=== PATIENT | female | born 1945 | race Caucasian/White ===

== ENCOUNTER 2023-07-14 10:51 | Day surgery (SDC) | payer MEDICARE, OTHER, SELFPAY ==
--- NOTE | 2023-07-14 | LES_PTH ---
PATIENT: JOON RUSSELL LOC: [facility] [place] U#:[id number] AGE/SX: 77/F ROOM: RE07/14/[address]: Dr. Libia Go MD : [id number] BED: DIS: 07/14/2023 SPEC #: [id number] RECD: 07/14/23 13:05 STATUS: MICHAEL TRICIA #: [id number] YAZ: 07/14/23 00:[address]: Libia Go DEPT: SURGICAL PATHOLOGY RECD BY: Janiya Peraza Tissues: A - Skin of face, NOS B - Skin of face, NOS Procedures: Frozen Section (charge) Surgery Specimen Level IV HEADER OPERATION: Excision squamous cell carcinoma left cheek wit frozen section PRE-OP DIAGNOSIS: Squamous cell skin cancer face TISSUE SUBMITTED: A - Squamous cell carcinoma left cheek, frozen section, B - Left cheek lesion FROZEN SECTION DIAGNOSIS A. Left cheek lesion, excisional biopsy: Margins are free of tumor. SJ:vinh 07/14/2023 Case has been reviewed in consultation with Dr. Melissa who concurs with the above diagnosis. IDC:AM MICROSCOPIC DIAGNOSIS A. Left cheek lesion, excisional biopsy: Basal cell carcinoma, completely excised. Solar elastosis. B. Left cheek lesion, biopsy: Intradermal nevus. Solar elastosis. 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 Case has been reviewed in consultation with Dr. Melissa who concurs with the above diagnosis. IDC:AM MICROSCOPIC DESCRIPTION Slides are reviewed. GROSS DESCRIPTION A - Received fresh for frozen section diagnosis labeled with the patient's name is a specimen designated left cheek lesion. The specimen consists of an ovoid piece of العلي-white skin oriented on gauze measuring 1.1 x 1.0 x 0.2 cm. The specimen is inked as follows: 12 to 3 o'clock - black, 3 to 6 o'clock - blue, 6 to 9 o'clock - green and 9 to 12 o'clock - yellow. The specimen is serially sectioned and submitted entirely for frozen section diagnosis in one cassette. / WINIFRED:vinh 07/14/2023 B - Received in fixative is one container labeled with the patient's name and designated left cheek lesion. The specimen consists of a piece of العلي-white skin measuring 0.5 x 0.2 x 0.1 cm. The specimen is inked and submitted entirely in one cassette. / WINIFRED:vinh 07/18/2023 TC:0 CPT: 90962 x2, 59808
[2023-07-14 11:30] VITALS: BP 148/82; PULSE 82; RESP 17; TEMP 36.2; O2SAT 96; BMI 31.4
--- NOTE | 2023-07-14 12:16 | PCM.HP.BLA ---
History and Physical Date of Admission: 07/14/23 The patient is examined and there are no changes from the exam of 07/04/2023. She presents for excision of a skin cancer of her left cheek with frozen section along with a second lesion in the left cheek area. Assessment & Plan Assessment/Plan (1) Squamous cell skin cancer, face: (2) Neoplasm of uncertain behavior of skin: PLAN: Plan Basosquamous carcinoma of the left cheek and lesion of left cheek For excision with frozen section of the biopsy-proven skin cancer and excision of a secondary lesion.
[2023-07-14 12:36] VITALS: BP 131/78; BP 132/67; O2SAT 94; O2SAT 95; O2SAT 96
[2023-07-14] MEDS: Lidocaine 1% /Epi 1:100 9 ML, Sodium Bicarbonate 1 MEQ OPERA.SITE (13:06)
--- NOTE | 2023-07-14 13:26 | DCINST_ITS ---
Discharge Instructions Dressing / Incision Additional Dressing/Incision Instructions:: Keep your head elevated (recliner position) for the next 2-3 nights to reduce swelling and bruising. Take the oral antibiotic (Keflex) 2 x a day until finished. Keep the steri-strips dry and intact until seen in the office. If they should fall off, clean the area with peroxide 1 x a day. Follow Up Care Please Follow Up With: Libia Go MD Test Results: Test results from this visit will be discussed in further detail at your follow- up appointment, if applicable. Discharge Plan Admission Attending Provider: Libia Go Primary Care Provider: BRICE CABRERA Discharge Orders/Prescriptions Prescriptions: New cephalexin 500 mg capsule 500 mg PO BID Qty: 10 0RF No Action magnesium 250 mg tablet 250 mg PO DAILY calcium citrate-vitamin D3 [Citracal + D Maximum] 315 mg-6.25 mcg (250 unit) tablet 1 tab PO DAILY losartan 50 mg tablet 50 mg PO DAILY hydroxyzine HCl 25 mg tablet 25 mg PO QHS hyoscyamine sulfate 0.125 mg/5 mL elixir 0.125 mg PO Q6H PRN (Reason: o) alendronate 70 mg tablet 70 mg PO QWEEK hyoscyamine sulfate 0.375 mg tablet extended release 12 hr 0.375 mg PO Q12H furosemide [Lasix] 20 mg tablet 20 mg PO ONCE promethazine 25 mg tablet 25 mg PO Q6H PRN (Reason: nausea and vomiting) diazepam 10 mg tablet 10 mg PO DAILY PRN (Reason: leg cramps) fluticasone propionate 50 mcg/actuation blister with device 1 inh inhalation ONCE Citrucel 500 mg tablet 500 mg PO DAILY Adult 50 Plus Probiotic 4 billion cell capsule 4,000 mmu cells PO DAILY Rx Instructions: administer with a meal ropinirole 0.5 mg tablet 0.5 mg PO QHS Rx Instructions: administer 1-3 hours before bedtime esomeprazole magnesium [Nexium] 40 mg capsule,delayed release(DR/EC) 40 mg PO DAILY Azo Cranberry 250 mg tablet,chewable 500 mg PO DAILY pravastatin 10 mg tablet hydrochlorothiazide 25 mg tablet Patient Comments: TAKE 1 TABLET BY MOUTH ONCE DAILY Referrals / Follow Up: BRICE CABRERA [Other] Disposition Disposition (needs filled in before D/C Order can be placed): Home, Self Care
--- NOTE | 2023-07-14 13:30 | PCM.OPRPT ---
Problems Associated Problem List Diagnoses (1) Neoplasm of uncertain behavior of skin: (2) Squamous cell skin cancer, face: Report of Operation Date of Procedure: 07/14/23 Pre-Operative Diagnosis: Biopsy-proven skin cancer of left cheek; neoplasm of uncertain behavior left cheek Post-Operative Diagnosis: Same Surgery/Procedure Performed:: Excision basal squamous cell carcinoma left cheek with frozen section (2.0 cm) and intermediate closure; excision lesion left cheek (1.0 cm) Surgeon: Libia Go Type of Anesthesia: Local Specimen's removed: Above Estimated Blood Loss (mL): Minimal Description of Procedure: The patient presents with a biopsy-proven basal squamous cell carcinoma of the left cheek. She also has a new lesion of the left cheek just inferior to this. She presents for frozen section evaluation of the skin cancer. She is aware that we will not have the results of the second lesion immediately and this could require secondary surgery if positive for skin cancer. The patient was brought to the operating room and placed on the operating room table in supine position. The face is prepped and draped in the usual sterile fashion. 1% Xylocaine with epinephrine buffered with sodium bicarb was used for local anesthetic. Following this, the lesion of the left cheek is excised and passed off the operative field maintaining orientation for pathology. Hemostasis is controlled with cautery. Frozen section reveals clear margins and therefore the wound is closed. Monocryl sutures were used to approximate the subcutaneous tissue and dermis with [id number] suture. Skin edges were approximated with a running subcuticular Monocryl suture. Further refinement of the closure was done with a running chromic suture. We then addressed the secondary lesion. After this is anesthetized with 1% Xylocaine with epinephrine buffered with sodium bicarb, it is excised and passed off the operative field to be sent to pathology. Hemostasis is controlled with cautery. The incision was then closed with a running chromic suture. Dermabond and Steri-Strips were placed on both sides. She tolerated the procedure well and was taken to the recovery area in an awake and stable condition. Needle and sponge counts are correct. Complications None Admit VTE Documentation VTE Mechan Device Prophylaxis: None Reason prophylaxis not ordered:: Treatment Not Indicated
[2023-07-14 13:39] VITALS: BP 132/64; BP 148/82; PULSE 77; RESP 16; TEMP 36.6; O2SAT 95
== END 2023-07-14 14:03 | disposition home or self-care (01) ==
LOC: SDC 10:53 → AC 11:14
PROVIDERS: Visit Provider Plastic Surgery
PROC: (CPT 21012; principal; 2023-07-14 12:20)
DX: D48.5 Neoplasm of uncertain behavior of skin (principal); C44.329 Squamous cell carcinoma of skin of other parts of face; Z79.899 Other long term (current) drug therapy
CPT/HCPCS: 21012; 00300; 88305; 88331